=== PATIENT | female | born 1950 | race Caucasian/White ===

== ENCOUNTER 2016-09-03 05:55 | Day surgery (SDC) | payer BC, OTHER ==
[~2016-09-03] VITALS: Ht 170.2 cm; Wt 108.9 kg
[2016-09-03] MEDS ORDERED: SEVOFLURANE 15 MIN GAS INH ONE (07:04)
[2016-09-03] MEDS ORDERED: KETOROLAC TROMETHAMINE 30 MG VIAL IVP ONE (07:04)
[2016-09-03] MEDS ORDERED: LR 1,000 ML IV.SOLN IV ONE (07:04)
[2016-09-03] MEDS ORDERED: MIDAZOLAM HCL 5 MG/5 ML VIAL IVP ONE (07:04)
[2016-09-03] MEDS ORDERED: ONDANSETRON HCL 4 MG/2 ML VIAL IVP ONE (07:04)
[2016-09-03] MEDS ORDERED: NS IRRIG SOLN 5000 ML IR ONE (07:04)
[2016-09-03] MEDS ORDERED: fentaNYL CITRATE 250 MCG/5 ML AMP IV ONE (07:04)
[2016-09-03] MEDS ORDERED: PROPOFOL 200MG/ 20ML VIAL (DIPRIVAN) IV ONE (07:04)
[2016-09-03] MEDS ORDERED: LR 1,000 ML IV SCH (08:08)
[2016-09-03] MEDS ORDERED: HYDROmorphone 2 MG/ML VIAL IVP PRN ×2 (08:15)
[2016-09-03] MEDS ORDERED: ONDANSETRON HCL 4 MG/2 ML VIAL IVP PRN ×2 (08:15→08:45)
[2016-09-03] MEDS ORDERED: MEPERIDINE HCL/PF 25 MG/ML DISP.SYRIN IVP PRN ×2 (08:15)
[2016-09-03] MEDS ORDERED: HYDROmorphone 1 MG INJ. 1 MG/ML AMPUL IVP PRN (08:15)
[2016-09-03] MEDS ORDERED: PROMETHAZINE HCL 25 MG/ML AMP IM PRN ×2 (08:45)
[2016-09-03] MEDS ORDERED: IBUPROFEN 600 MG TABLET PO PRN (08:45)
[2016-09-03] MEDS ORDERED: OXYCODONE/ACETAMINOPHEN 5-325 TABLET PO PRN ×2 (08:45)
[2016-09-03 09:43] VITALS: BP_SYST 132
== END 2016-09-03 10:30 | disposition home or self-care (01) ==
LOC: SMU 05:55 → SDS 05:55
PROVIDERS: ATTEND Obstetrics & Gynecology
DX: N84.0 Polyp of corpus uteri (principal); I10 Essential (primary) hypertension; E78.00 Pure hypercholesterolemia, unspecified; N95.0 Postmenopausal bleeding; I67.1 Cerebral aneurysm, nonruptured; M17.10 Unilateral primary osteoarthritis, unspecified knee; Z98.890 Other specified postprocedural states; Z82.49 Family history of ischemic heart disease and other diseases of the circulatory system; Z68.36 Body mass index [BMI] 36.0-36.9, adult
CPT/HCPCS: 36415; 86886; 86900; 86901; 88305; C1819; J1885; J2250; J2405; J2704; J3010; J7120